=== PATIENT | male | born 1940 | race Caucasian/White ===

== ENCOUNTER 2017-08-06 08:10 | Day surgery (SDC) | payer OTHER, BC ==
[2017-08-05 16:19] VITALS: BMI 24.9
[2017-08-06] MEDS ORDERED: PROPOFOL 20 ML ONE ×5 (08:42)
[2017-08-06] MEDS ORDERED: LABETALOL HCL 5 MG/1 ML (100MG/20 ML VIAL) ONE (08:56)
[2017-08-06] MEDS ORDERED: ESMOLOL HCL 10 ML ONE (08:56)
[2017-08-06] MEDS ORDERED: METOPROLOL TARTRATE 5 MG/5 ML VIAL ONE (08:56)
[2017-08-06 09:25] VITALS: TEMP 97.5
[2017-08-06 10:35] VITALS: BP 117/72; PULSE 108
== END 2017-08-06 10:46 | disposition home or self-care (01) ==
LOC: JASU-ENDO 08:10
PROVIDERS: ATTEND Internal Medicine Gastroenterology
PROC: 0DJD8ZZ Inspection of Lower Intestinal Tract, Via Natural or Artificial Opening Endoscopic (ICD-10-PCS; principal; 2017-08-06 08:45)
DX: K57.30 Diverticulosis of large intestine without perforation or abscess without bleeding (principal); R19.4 Change in bowel habit; R63.4 Abnormal weight loss

== ENCOUNTER 2019-07-15 06:23 | Day surgery (SDC) | payer OTHER ==
--- NOTE | 2019-07-09 09:49 | HP ---
DATE OF ADMISSION: 07/15/2019 DATE OF DICTATION: 06/02/2019 REASON FOR ADMISSION: Left inguinal hernia, inguinal scrotal hernia. BRIEF HISTORY: This is a 79-year-old gentleman with a very longstanding history of having a large left inguinal scrotal hernia. Recently he started having discomfort in the left groin and left lower abdomen secondary to the hernia and therefore he has been referred for further evaluation and repair. He has had no nausea, no vomiting, no change in bowel habits. PAST MEDICAL HISTORY: Significant for chronic atrial fibrillation, hypertension , and chronic peritoneal pelvic pain. He has a history of having thyroid issues as well. PAST SURGICAL HISTORY: Patient had an open appendectomy many, many years ago. ALLERGIES: None. MEDICATION: Coumadin, atorvastatin, escitalopram, digoxin, diltiazem, baby aspirin, olmesartan, incruse inhaler, dulera inhaler, ranolazine and Zantac. SOCIAL HISTORY: Does not smoke. He drinks socially. No history of drug use. PHYSICAL EXAMINATION: Abdomen: Patient's abdomen is soft, nontender, nondistended. He has a poorly healed right lower quadrant scar. He has no obvious findings in the right groin. A small hernia cannot be entirely ruled out due to its laxity in this gentleman's age. The right scrotum and testicles are within normal limits. On the left side, he has a large, left inguinal scrotal hernia. The hernia is only partially reducible in the supine position. Left scrotum and testicles within normal limits. IMPRESSION/PLAN: Chronically incarcerated left inguinal scrotal hernia: This is a 79-year-old gentleman symptomatic from an enlarging chronic left inguinal scrotal hernia. It is only partially reducible on examination and therefore it is chronically incarcerated as well. Typically this patient can be repaired in a laparoscopic fashion or robotic fashion. However, given the fact that he is on coumarin for his chronic atrial fibrillation, I think the risks and chronic hematoma problems outweigh the benefits from the laparoscopic procedure, and therefore the patient will be scheduled for an open left inguinal hernia repair. Accordingly , the patient most likely will require a Lovenox bridge for his chronic atrial fibrillation as well, but this will be determined by his primary care physician, Dr. Purcell. Prior to any surgical intervention, patient will require medical clearance and possibly cardiac clearance as per Dr. Purcell. The indications, alternatives, and complications to procedure discussed. Questions have been answered. Will plan to obtain written consent the day of surgery. Chris RAMOS [id number] cc: Sandra Purcell M.D. MTDD
[2019-07-13 09:46] VITALS: BMI 27.6
[2019-07-15] MEDS ORDERED: TAMSULOSIN HCL 0.4 MG CAP ONE (07:19)
[2019-07-15] MEDS ORDERED: CLINDAMYCIN PHOSPHATE 600 MG/4 ML VIAL ONE (07:19)
[2019-07-15] MEDS ORDERED: DEXAMETHASONE SOD PHOSPHATE 4 MG/1 ML VIAL ONE (08:21)
[2019-07-15] MEDS ORDERED: BUPIVACAINE HCL/PF 0.5% (5 MG/ML) 30 ML VIAL IJ ONE (08:21)
[2019-07-15] MEDS ORDERED: MIDAZOLAM HCL 2 MG/2 ML SINGLE DOSE VIAL ONE ×2 (08:22)
[2019-07-15] MEDS ORDERED: PROPOFOL 20 ML ONE (08:31)
[2019-07-15] MEDS ORDERED: ROCURONIUM BROMIDE 50 MG/5 ML SYRINGE ONE (08:32)
[2019-07-15] MEDS ORDERED: LIDOCAINE HCL/PF 2% SDV 5ML VIAL ONE (09:03)
[2019-07-15] MEDS ORDERED: CLINDAMYCIN PHOSPHATE 600 MG/4 ML VIAL IVPB ONE (09:10)
[2019-07-15] MEDS ORDERED: NEOSTIGMINE METHYLSULFATE 0.5 MG/1 ML - 10 ML MDV ONE (09:50)
[2019-07-15] MEDS ORDERED: GLYCOPYRROLATE 0.2 MG/1 ML VIAL ONE (09:50)
[2019-07-15] MEDS ORDERED: DESFLURANE GAS 240 ML BOTTLE IH ONE (10:05)
[2019-07-15] MEDS ORDERED: ONDANSETRON 4 MG/2 ML VIAL IVPUSH PRN (10:07)
[2019-07-15] MEDS ORDERED: oxyCODONE HCL 5 MG TABLET PO PRN ×2 (10:07→10:41)
--- NOTE | 2019-07-15 10:34 | OP ---
Operative Note - Note: Operative Date: 07/15/19 Pre-Operative Diagnosis: left inguinal hernia Operation: Left inguinal hernia repair with mesh Post-Operative Diagnosis: Same as Pre-op Surgeon: Bryson Griffin Lumber Carrier: Izzy Velazquez Anesthesiologist/GAS DERRICK OPERATOR: Louie Sears Anesthesia: General Specimens Removed: hernia sac Estimated Blood Loss (mls): 20 Fluid Volume Replaced (mls): 800 Operative Report Dictated: Yes
[2019-07-15] MEDS ORDERED: ACETAMINOPHEN 325 MG TABLET (FP) PO PRN ×2 (10:35→21:01)
--- NOTE | 2019-07-15 10:35 | SURG ---
Surgery Enamel Shader Note Enamel Shader: Izzy Velazquez PA-C Date of Service: 07/15/19 Diagnosis: left inguinal hernia Procedure: Left inguinal hernia repair with mesh I was present for the entirety of the operative procedure. For further detail, please refer to operative report. Visit type - Case Type Case Type: Scheduled - Emergency Emergency Visit: No - New patient This patient is new to me today: Yes Date on this admission: 07/15/19
--- NOTE | 2019-07-15 12:47 | OP ---
DATE OF OPERATION: 07/15/2019 PREOPERATIVE DIAGNOSIS: Chronically incarcerated left inguinal hernia. POSTOPERATIVE DIAGNOSIS: Chronically incarcerated left pantaloon inguinal hernia. PROCEDURE: Open repair of left incarcerated inguinal hernia with mesh, 8 cm intermediate wound closure. SURGEON: Bryson Griffin MD HORSESHOER: Izzy Velazquez PA-C ANESTHESIA: Tasia Campbell MD (general) ESTIMATED BLOOD LOSS: Minimal. SPECIMEN: Hernia sac and cord lipoma INDICATION FOR PROCEDURE: This is a 79-year-old gentleman with a very large inguinoscrotal hernia. The patient is chronically anticoagulated due to atrial fibrillation, therefore, he is here for an open repair of this bothersome hernia. Patient identified and appropriately positioned on the operating room table. After placement of general anesthesia, the abdomen prepped and draped in usual sterile fashion with ChloraPrep. An 8-cm left inguinal incision was made and deepened to subcutaneous tissue. Anastasiya's divided sharply, the fascia of the external oblique identified, divided sharply through the external ring. Ilioinguinal nerve identified, retracted laterally. The cord structures were isolated at the pubic tubercle. The cremasterics were divided sharply. A large indirect inguinal hernia sac was identified with a moderate size cord lipoma. The lipoma was taken back to the level of the internal ring, clamped and then tied and sent as cord lipoma. The sac was off the cord structures back to the level of the internal ring. It was suture ligated and dunked into the preperitoneal floor. The preperitoneal floor was attenuated and clearly had a defect through the direct inguinal space. Given this finding, the inguinal floor was then opened. A Marlex mesh plug was placed into the preperitoneal space beyond the inguinal floor and then anchored with interrupted 0 Prolene sutures, the inguinal floor reconstructed in 2 layers with a running 2 -0 Prolene suture, and due to the attenuation of the floor, a 15 x 15 piece of ProGrip was cut to the appropriate size of the floor, keyholed, and placed on the inguinal floor as reinforcement, and wrapped around the cord structures to reconstruct the internal ring. The cord structures were returned to the anatomic position along with the inguinal nerve. The fascia of the external oblique was reapproximated with a running 3-0 Vicryl suture. Anastasiya's reapproximated with interrupted inverted 3-0 Vicryl suture and the skin was closed with 4-0 Biosyn followed by Dermabond. At the conclusion of this case, sponge count was correct. ATTESTATION: Brief operative note handwritten on the preprinted form. [facility] queried prior to giving narcotics. Chris RAMOS [id number] cc: Sandra Purcell MD MTD
--- NOTE | 2019-07-15 13:03 | PN ---
Progress Note, Physician Chief Complaint: L inguinal hernia repair History of Present Illness: Previous notes and events reviewed awake and alert NAD POD #0 L inguinal hernia repair with mesh denies chest pain, SOB - Current Medication List Current Medications: Active Medications Acetaminophen (Tylenol -) 650 mg PO Q4H PRN PRN Reason: PAIN OR FEVER Aspirin (Asa -) 81 mg PO DAILY [facility] Atorvastatin Calcium (Lipitor -) 40 mg PO HS [facility] Diltiazem HCl (Cardizem Cd -) 180 mg PO DAILY [facility] Enoxaparin Sodium (Lovenox -) 100 mg SQ BID [facility] Fentanyl (Sublimaze Injection -) 25 mcg IVPUSH [id number] PRN PRN Reason: PAIN-PACU ORDER X 4 DOSES ONLY Lactated Ringer's (Lactated Ringers Solution) 1,000 mls @ 75 mls/hr IV ASDIR [facility] Non-Formulary Medication (Ranitidine Hcl [Ranitidine Hcl]) 300 mg PO HS [facility] Ondansetron HCl (Zofran Injection) 4 mg IVPUSH Q6H PRN PRN Reason: NAUSEA AND/OR VOMITING Oxycodone HCl (Roxicodone -) 5 mg PO Q4H PRN PRN Reason: PAIN LEVEL 1-5 Oxycodone HCl (Roxicodone -) 5 mg PO Q4H PRN PRN Reason: PAIN LEVEL 1-5 Ranolazine (Ranexa -) 500 mg PO BID [facility] Umeclidinium/Vilanterol (Anoro Ellipta 62.5-25 Mcg Inh) puff IH DAILY [facility] Warfarin Sodium (Coumadin -) 2 mg PO DAILY [facility] - Objective Vital Signs: Vital Signs Temperature 98.1 F 07/15/19 10:24 Pulse Rate 84 07/15/19 10:30 Respiratory Rate 15 07/15/19 10:30 Blood Pressure 105/70 07/15/19 10:30 O2 Sat by Pulse Oximetry (%) 94 L 07/15/19 10:30 Constitutional: Yes: No Distress, Calm Eyes: Yes: Conjunctiva Clear HENT: Yes: Atraumatic Cardiovascular: Yes: Regular Rate and Rhythm Respiratory: Yes: Regular, CTA Bilaterally Gastrointestinal: Yes: Normal Bowel Sounds, Soft Genitourinary: Yes: Incontinence Musculoskeletal: Yes: Muscle Weakness Extremities: Yes: WNL Edema: No Wound/Incision: Yes: Dressing Dry and Intact Neurological: Yes: Alert, Oriented Psychiatric: Yes: Alert, Oriented Problem List - Problems (1) Inguinal hernia Assessment/Plan: -POD #0 L inguinal hernia repair -pain control -incentive spirometer -surgery on board Code(s): K40.90 - UNIL INGUINAL HERNIA, W/O OBST OR GANGR, NOT SPCF RECUR (2) HTN (hypertension) Assessment/Plan: -low Na diet -Cardizem Code(s): I10 - ESSENTIAL (PRIMARY) HYPERTENSION (3) Afib Assessment/Plan: -on Lovenox BID -started back on Coumadin 2mg in hope to bridge INR, will stop Lovenox when INR 2-3 -monitor INR daily -therapeutic range 2-3 Code(s): I48.91 - UNSPECIFIED ATRIAL FIBRILLATION Assessment/Plan see problem list dvt ppx
[2019-07-15] MEDS: LACTATED RINGERS SOLUTION 1,000 ML IV SCH (13:30)
[2019-07-15 18:51] LABS: INR 1.18 (0.83-1.09); PROTHROMBIN TIME (PATIENT) 13.9 SEC (9.7-13.0)
[2019-07-15 18:54] LABS: ACTIVATED PTT 30.5 SECONDS (25.2-36.5)
[2019-07-15] MEDS: ENOXAPARIN NA (PORCINE) 80 MG/0.8 ML DISP.SYRIN SQ SCH (21:30)
[2019-07-15] MEDS: RANOLAZINE E.R. 500 MG TABLET (FP) PO SCH (21:32)
[2019-07-15] MEDS ORDERED: ATORVASTATIN CA 40 MG TABLET (FP) PO SCH (22:00)
[2019-07-15] MEDS ORDERED: RANITIDINE HCL 150 MG TABLET (FP) PO SCH (22:00)
[2019-07-16] MEDS: LACTATED RINGERS SOLUTION 1,000 ML IV SCH (01:35)
--- NOTE | 2019-07-16 08:40 | PN ---
Progress Note (short form) - Note Progress Note: 79 yo M s/p Lt inguinal hernia repair, pt seen and examined at bedside. Pt states that he is feeling well, just complaining of some mild Lt groin pain, but states that he has not taken any pain meds. Pt is ambulating and urinating well. Pt tolerating PO. Pt denies fever, chills, n/v, cp, sob. Last Vital Signs Temp Pulse Resp BP Pulse Ox 97.9 F 110 H 20 115/58 L 96 07/16/19 02:35 07/16/19 02:35 07/16/19 02:35 07/16/19 02:35 07/15/19 21:00 PE: Gen: A&O x3 Resp: breathing comfortably Abd: soft, nondistended, mild Lt groin tenderness, dressing clean with no erythema or discharge. Ext: no edema Problem List - Problems (1) Inguinal hernia Assessment/Plan: Plan -spoke with Mayte Storey, pt will continue his lovenox and coumadin and follow up with Dr. Perea tomorrow in the office. -pt is cleared for discharge and will follow up with Dr. Griffin in 1 week. Code(s): K40.90 - UNIL INGUINAL HERNIA, W/O OBST OR GANGR, NOT SPCF RECUR
[2019-07-16 09:12] LABS: HEMOGLOBIN 12.6 GM/dL (11.7-16.9); MCH 34.5 pg (25.7-33.7); MCHC 35.1 g/dl (32.0-35.9); MEAN CELL VOLUME 98.2 fl (80-96); MEAN PLT VOLUME 7.8 fl (7.5-11.1); PLATELET COUNT 178 K/MM3 (134-434); RBC 3.66 M/mm3 (4.00-5.60); WHITE BLOOD COUNT 10.3 K/mm3 (4.0-10.0)
[2019-07-16] MEDS: RANOLAZINE E.R. 500 MG TABLET (FP) PO SCH (09:22)
[2019-07-16] MEDS: ENOXAPARIN NA (PORCINE) 80 MG/0.8 ML DISP.SYRIN SQ SCH (09:23)
[2019-07-16 09:38] VITALS: BP 117/66; PULSE 105; TEMP 97.8
[2019-07-16 10:00] LABS: INR 1.18 (0.83-1.09); PROTHROMBIN TIME (PATIENT) 13.9 SEC (9.7-13.0)
[2019-07-16] MEDS ORDERED: UMECLIDINIUM/VILANTEROL (ANORO) 62.5/25 MCG INHALER IH SCH (10:00)
[2019-07-16] MEDS ORDERED: ASPIRIN 81 MG CHEWABLE TABLETS PO SCH (10:00)
[2019-07-16] MEDS ORDERED: ENOXAPARIN NA (PORCINE) 100 MG/1 ML DISP.SYRIN SQ SCH (10:00)
[2019-07-16] MEDS ORDERED: WARFARIN NA 2 MG TABLET (UD) PO SCH (18:00)
--- NOTE | 2019-07-16 18:13 | PATH ---
Surgical Pathology Report Patient Name: ROBYN PALOMARES [facility]. Rec. #: [id number] /Age/Gender: 1940 (Age: 79) / M Account: [id number] Location: AMBULATORY SURG Taken: 07/15/2019 Received: 07/15/2019 Reported: 07/16/2019 Physicians: Bryson Griffin Specimen(s) Received A: CORD LIPOMA B: LEFT INGUINAL HERNIA Clinical History Inguinal hernia Final Diagnosis A. CORD LIPOMA, EXCISION: MATURE FIBROADIPOSE TISSUE CONSISTENT WITH CORD LIPOMA. B. HERNIA SAC, LEFT, INGUINAL HERNIA REPAIR: HERNIA SAC. Electronically Signed Linda Damon M.D. Gross Description A. Received in formalin labeled "cord lipoma" is an irregular fragment of fibroadipose tissue measuring 7 x 3 x 1.5 cm. Professor Of [employer] sections are submitted in one cassette. B. Received in formalin labeled "hernia sac" fibromembranous and adipose tissue consistent with hernia sac measuring 7 x 3 x 2 cm. Professor Of [employer] sections are submitted in one cassette. MLSZ/07/15/2019 sanritu/07/15/2019
== END 2019-07-16 11:33 | disposition home or self-care (01) ==
LOC: JASU-SURG 06:23 → JASUSAT 06:23 → J6S 14:03 → JASUSAT 07-16 11:33
PROVIDERS: ATTEND Surgery
PROC: 0YU60JZ Supplement Left Inguinal Region with Synthetic Substitute, Open Approach (ICD-10-PCS; principal; 2019-07-15 09:00)
DX: K40.31 Unilateral inguinal hernia, with obstruction, without gangrene, recurrent (principal); I48.91 Unspecified atrial fibrillation; Z79.01 Long term (current) use of anticoagulants; J44.9 Chronic obstructive pulmonary disease, unspecified
CPT/HCPCS: 36415; 85027; 85610; 85730; 94760; 97116-GP; 97161-GP

== ENCOUNTER 2021-02-17 09:49 | Inpatient (IN) | payer OTHER ==
[2021-02-17] MEDS ORDERED: LACTATED RINGERS SOLUTION 1000 ML INFUS.BAG IV ONE (11:14)
[2021-02-17 11:27] LABS: BASO % 0.4 % (0-2.0); HEMATOCRIT 33.2 % (35.4-49); HEMOGLOBIN 11.7 GM/dL (11.7-16.9); LYMPH % 9.1 % (8-40); MCH 34.2 pg (25.7-33.7); MCHC 35.3 g/dl (32.0-35.9); MEAN CELL VOLUME 96.9 fl (80-96); MONO % 7.1 % (3.8-10.2); NEUT % 80.4 % (42.8-82.8); PLATELET COUNT 171 K/MM3 (134-434); RBC 3.43 M/mm3 (4.00-5.60); RDW 13.1 % (11.9-15.9); WHITE BLOOD COUNT 8.1 K/mm3 (4.0-10.0)
[2021-02-17 11:34] LABS: INR 2.74 (0.83-1.09); PROTHROMBIN TIME (PATIENT) 32.7 SEC (9.7-13.0)
[2021-02-17 11:37] LABS: ACTIVATED PTT 32.9 SECONDS (25.2-36.5)
[2021-02-17 11:54] LABS: CHLORIDE 107 mmol/L (98-107); SODIUM 138 mmol/L (136-145)
[2021-02-17 11:57] LABS: ALBUMIN 2.6 g/dl (3.4-5.0); ANION GAP 6 MMOL/L (8-16); CO2 24 mmol/L (21-32); GLUCOSE,RANDOM 96 mg/dL (74-106)
[2021-02-17 12:00] LABS: CREATININE 0.8 mg/dL (0.55-1.3); SGOT/AST 16 U/L (15-37); SGPT/ALT 17 U/L (13-61)
[2021-02-17 12:02] LABS: BILIRUBIN,TOTAL 0.7 mg/dL (0.2-1); TOT PROT 6.6 g/dl (6.4-8.2)
[2021-02-17 12:03] LABS: ALK PHOS 77 U/L (45-117)
[2021-02-17 12:31] LABS: LIPASE 70 U/L (73-393)
[2021-02-17 12:39] LABS: N-TERMINAL BNP 1284.7 pg/ml (5-450)
[2021-02-17 14:05] LABS: URINE APPEARANCE CLEAR; URINE BILIRUBIN NEGATIVE (NEGATIVE); URINE COLOR YELLOW; URINE GLUCOSE (UA) NEGATIVE (NEGATIVE); URINE KETONE NEGATIVE (NEGATIVE); URINE LEUK ESTERASE NEGATIVE (NEGATIVE); URINE NITRITE NEGATIVE (NEGATIVE); URINE PROTEIN NEGATIVE (NEGATIVE)
[2021-02-17] MEDS ORDERED: ACETAMINOPHEN 1000 MG/100 ML VIAL (NON FORMULARY) IVPB PRN (16:12)
[2021-02-17] MEDS ORDERED: SODIUM CHLORIDE 1,000 ML IV SCH (16:15)
[2021-02-17] MEDS ORDERED: dilTIAZem HCL 60 MG TABLET ONE (16:48)
[2021-02-17] MEDS ORDERED: PANTOPRAZOLE 40 MG TABLET ONE (16:48)
[2021-02-17] MEDS: PANTOPRAZOLE 40 MG TABLET PO SCH (17:06)
[2021-02-17] MEDS ORDERED: HEPARIN NA (PORCINE) 5,000 UNITS/ML 1ML VIAL ONE (21:51)
[2021-02-17] MEDS ORDERED: ATORVASTATIN CA 20 MG TABLET (FP) ONE (21:51)
[2021-02-17] MEDS: ATORVASTATIN CA 20 MG TABLET (FP) PO SCH (22:12)
[2021-02-17] MEDS: HEPARIN NA (PORCINE) 5,000 UNITS/ML 1ML VIAL SQ SCH (22:12)
[2021-02-18 01:06] VITALS: BMI 24.0
[2021-02-18 06:54] LABS: HEMATOCRIT 31.7 % (35.4-49); HEMOGLOBIN 11.2 GM/dL (11.7-16.9); MCH 34.1 pg (25.7-33.7); MCHC 35.4 g/dl (32.0-35.9); MEAN CELL VOLUME 96.4 fl (80-96); MEAN PLT VOLUME 8.9 fl (7.5-11.1); PLATELET COUNT 194 K/MM3 (134-434); RBC 3.29 M/mm3 (4.00-5.60); RDW 12.9 % (11.9-15.9); WHITE BLOOD COUNT 8.3 K/mm3 (4.0-10.0)
[2021-02-18 07:21] LABS: CALCIUM 8.2 mg/dL (8.5-10.1)
[2021-02-18 07:22] LABS: ALBUMIN 2.4 g/dl (3.4-5.0); BLOOD UREA NITROGEN 12.6 mg/dL (7-18)
[2021-02-18 07:25] LABS: CREATININE 0.8 mg/dL (0.55-1.3)
[2021-02-18 07:27] LABS: BILIRUBIN,TOTAL 0.6 mg/dL (0.2-1); TOT PROT 6.3 g/dl (6.4-8.2)
[2021-02-18] MEDS: PANTOPRAZOLE 40 MG TABLET PO SCH (09:03)
[2021-02-18] MEDS: ESCITALOPRAM OXALATE 10 MG TABLET PO SCH (09:04)
[2021-02-18] MEDS: DONEPEZIL HCL 5 MG TABLET (FP) PO SCH (09:04)
[2021-02-18] MEDS: HEPARIN NA (PORCINE) 5,000 UNITS/ML 1ML VIAL SQ SCH ×2 (09:04→21:31)
[2021-02-18] MEDS: ASPIRIN COATED 81 MG TABLET.EC PO SCH (09:05)
[2021-02-18] MEDS: ATORVASTATIN CA 20 MG TABLET (FP) PO SCH (21:31)
[2021-02-19] MEDS: ASPIRIN COATED 81 MG TABLET.EC PO SCH (09:01)
[2021-02-19] MEDS: ESCITALOPRAM OXALATE 10 MG TABLET PO SCH (09:02)
[2021-02-19] MEDS: DONEPEZIL HCL 5 MG TABLET (FP) PO SCH (09:02)
[2021-02-19] MEDS: PANTOPRAZOLE 40 MG TABLET PO SCH (09:02)
[2021-02-19] MEDS: HEPARIN NA (PORCINE) 5,000 UNITS/ML 1ML VIAL SQ SCH (09:02)
[2021-02-19] MEDS: WARFARIN NA 2 MG TABLET PO SCH (17:00)
[2021-02-19] MEDS: ATORVASTATIN CA 20 MG TABLET (FP) PO SCH (21:41)
[2021-02-20 07:08] LABS: HEMATOCRIT 34.9 % (35.4-49); HEMOGLOBIN 12.4 GM/dL (11.7-16.9); MCHC 35.4 g/dl (32.0-35.9); MEAN PLT VOLUME 8.4 fl (7.5-11.1); PLATELET COUNT 250 K/MM3 (134-434); RBC 3.64 M/mm3 (4.00-5.60); RDW 12.9 % (11.9-15.9); WHITE BLOOD COUNT 6.7 K/mm3 (4.0-10.0)
[2021-02-20 07:22] LABS: INR 1.85 (0.83-1.09); PROTHROMBIN TIME (PATIENT) 22.4 SEC (9.7-13.0)
[2021-02-20 07:36] LABS: CALCIUM 8.2 mg/dL (8.5-10.1)
[2021-02-20 07:37] LABS: ALBUMIN 2.7 g/dl (3.4-5.0)
[2021-02-20 07:39] LABS: CREATININE 0.8 mg/dL (0.55-1.3)
[2021-02-20 07:40] LABS: BILIRUBIN,TOTAL 0.6 mg/dL (0.2-1); TOT PROT 6.7 g/dl (6.4-8.2)
[2021-02-20] MEDS: ASPIRIN COATED 81 MG TABLET.EC PO SCH (09:48)
[2021-02-20] MEDS: DONEPEZIL HCL 5 MG TABLET (FP) PO SCH (09:49)
[2021-02-20] MEDS: PANTOPRAZOLE 40 MG TABLET PO SCH (09:49)
[2021-02-20] MEDS: ESCITALOPRAM OXALATE 10 MG TABLET PO SCH (09:49)
[2021-02-20 10:22] LABS: ERYTHROCYTE SEDIMENTATION RATE 90 mm/hr (0-20)
[2021-02-20] MEDS: WARFARIN NA 2 MG TABLET PO SCH (17:04)
[2021-02-20] MEDS ORDERED: ALBUTEROL SO4 HFA INHALER IH PRN (17:47)
[2021-02-20] MEDS: ATORVASTATIN CA 20 MG TABLET (FP) PO SCH (21:05)
[2021-02-21 06:10] VITALS: TEMP 97.6
[2021-02-21 07:12] LABS: INR 1.81 (0.83-1.09); PROTHROMBIN TIME (PATIENT) 21.5 SEC (9.7-13.0)
[2021-02-21 08:59] VITALS: BP 115/66
[2021-02-21] MEDS: PANTOPRAZOLE 40 MG TABLET PO SCH (09:54)
[2021-02-21] MEDS: DONEPEZIL HCL 5 MG TABLET (FP) PO SCH (09:54)
[2021-02-21] MEDS: ESCITALOPRAM OXALATE 10 MG TABLET PO SCH (09:54)
[2021-02-21] MEDS ORDERED: WARFARIN NA 2 MG TABLET PO SCH (11:26)
[2021-02-21] MEDS ORDERED: DIGOXIN 0.125 MG TABLET (FP) PO SCH (11:30)
[2021-02-21 11:41] VITALS: PULSE 117
== END 2021-02-21 13:43 | disposition home or self-care (01) | DRG 392 ==
LOC: JER 09:49 → JERBED 14:47 → J4S 02-18 00:35
PROVIDERS: ADMIT Family Medicine; ATTEND Family Medicine
DX: K52.9 Noninfective gastroenteritis and colitis, unspecified (principal); I48.19 Other persistent atrial fibrillation; J84.9 Interstitial pulmonary disease, unspecified; I51.7 Cardiomegaly; I10 Essential (primary) hypertension; R59.0 Localized enlarged lymph nodes; K57.90 Diverticulosis of intestine, part unspecified, without perforation or abscess without bleeding; K21.9 Gastro-esophageal reflux disease without esophagitis; D72.829 Elevated white blood cell count, unspecified; R41.82 Altered mental status, unspecified; E78.5 Hyperlipidemia, unspecified; F03.90 Unspecified dementia, unspecified severity, without behavioral disturbance, psychotic disturbance, mood disturbance, and anxiety
CPT/HCPCS: 36415; 70450-TC; 71045-TC-FY; 71260-TC; 74177-TC; 80053; 81003; 82550; 83690; 83880; 84443; 84484; 85025; 85027; 85610; 85651; 85730; 86140; 87045; 87046; 87086; 93005; 93010; 97116-GP; 97161-GP; 99285-25; C9803; J1644; Q9967; U0003; U0005

== ENCOUNTER 2022-03-12 16:37 | Observation (INO) | payer OTHER ==
[2022-03-12 17:09] VITALS: BMI 24.3
[2022-03-12 20:33] LABS: BASO % 0.5 % (0-2.0); EOS % 2.5 % (0-4.5); HEMATOCRIT 37.8 % (35.4-49); HEMOGLOBIN 12.8 GM/dL (11.7-16.9); LYMPH % 19.8 % (8-40); MCH 32.7 pg (25.7-33.7); MCHC 33.9 g/dl (32.0-35.9); MEAN CELL VOLUME 96.5 fl (80-96); MEAN PLT VOLUME 8.4 fl (7.5-11.1); MONO % 6.8 % (3.8-10.2); NEUT % 70.4 % (42.8-82.8); PLATELET COUNT 199 10^3/uL (134-434); RBC 3.91 M/mm3 (4.00-5.60); RDW 13.1 % (11.9-15.9); VENOUS BASE EXCESS -1.1 mmol/L (-2-2); VENOUS O2 SATURATION 21.5 % (70-80); VENOUS PCO2 44.6 mmHg (38-52); VENOUS PH 7.359 (7.310-7.410); WHITE BLOOD COUNT 5.9 K/mm3 (4.0-10.0)
[2022-03-12 20:41] LABS: INR 2.97 (0.83-1.09); PROTHROMBIN TIME (PATIENT) 34.5 SEC (9.7-13.0)
[2022-03-12 20:44] LABS: ACTIVATED PTT 38.2 SECONDS (25.2-36.5)
[2022-03-12 21:18] LABS: CHLORIDE 108 mmol/L (98-107); SODIUM 141 mmol/L (136-145)
[2022-03-12 21:20] LABS: CALCIUM 8.5 mg/dL (8.5-10.1)
[2022-03-12 21:21] LABS: ALBUMIN 3.4 g/dl (3.4-5.0); ANION GAP 6 MMOL/L (8-16); CO2 27 mmol/L (21-32); GLUCOSE,RANDOM 97 mg/dL (74-106); MAGNESIUM 2.1 mg/dL (1.8-2.4)
[2022-03-12 21:24] LABS: CREATININE 1.2 mg/dL (0.55-1.3); SGOT/AST 14 U/L (15-37); SGPT/ALT 18 U/L (13-61)
[2022-03-12 21:25] LABS: BILIRUBIN,TOTAL 0.4 mg/dL (0.2-1)
[2022-03-12 21:27] LABS: ALK PHOS 109 U/L (45-117); BLOOD UREA NITROGEN 19.9 mg/dL (7-18)
[2022-03-12 23:14] LABS: PH,URINE 5.5 (5.0-8.0); URINE APPEARANCE CLEAR; URINE BILIRUBIN NEGATIVE (NEGATIVE); URINE COLOR DK YELLOW; URINE GLUCOSE (UA) NEGATIVE (NEGATIVE); URINE KETONE TRACE (NEGATIVE); URINE LEUK ESTERASE NEGATIVE (NEGATIVE); URINE NITRITE NEGATIVE (NEGATIVE); URINE PROTEIN NEGATIVE (NEGATIVE)
[2022-03-13] MEDS: PANTOPRAZOLE 40 MG TABLET PO SCH (10:55)
[2022-03-13] MEDS: ESCITALOPRAM OXALATE 10 MG TABLET PO SCH (10:55)
[2022-03-13] MEDS: DONEPEZIL HCL 5 MG TABLET (FP) PO SCH (10:55)
[2022-03-13] MEDS: ASPIRIN COATED 81 MG TABLET.EC PO SCH (10:55)
[2022-03-13] MEDS: MEMANTINE HCL 10 MG TABLET (FP) PO SCH ×2 (10:55→21:17)
[2022-03-13] MEDS: buPROPion HCL 75 MG TABLET PO SCH (11:10)
[2022-03-13 11:57] LABS: BASO % 0.6 % (0-2.0); EOS % 2.6 % (0-4.5); HEMATOCRIT 38.3 % (35.4-49); HEMOGLOBIN 13.1 GM/dL (11.7-16.9); LYMPH % 16.6 % (8-40); MCHC 34.1 g/dl (32.0-35.9); MEAN CELL VOLUME 96.6 fl (80-96); MEAN PLT VOLUME 8.3 fl (7.5-11.1); MONO % 5.9 % (3.8-10.2); NEUT % 74.3 % (42.8-82.8); PLATELET COUNT 192 10^3/uL (134-434); RBC 3.96 M/mm3 (4.00-5.60); RDW 12.8 % (11.9-15.9); WHITE BLOOD COUNT 6.2 K/mm3 (4.0-10.0)
[2022-03-13 12:15] LABS: BLOOD UREA NITROGEN 18.8 mg/dL (7-18); CALCIUM 8.8 mg/dL (8.5-10.1)
[2022-03-13] MEDS: CARBIDOPA/LEVODOPA 10/100 TABLET (FP) PO SCH ×2 (14:26→21:16)
[2022-03-13] MEDS ORDERED: WARFARIN NA 2 MG TABLET PO SCH (18:00)
[2022-03-13 19:12] LABS: INR 2.57 (0.83-1.09); PROTHROMBIN TIME (PATIENT) 29.8 SEC (9.7-13.0)
[2022-03-13] MEDS: ATORVASTATIN CA 40 MG TABLET (FP) PO SCH (21:17)
[2022-03-14] MEDS: CARBIDOPA/LEVODOPA 10/100 TABLET (FP) PO SCH ×3 (06:16→21:41)
[2022-03-14] MEDS: ASPIRIN COATED 81 MG TABLET.EC PO SCH (09:24)
[2022-03-14] MEDS: PANTOPRAZOLE 40 MG TABLET PO SCH (09:24)
[2022-03-14] MEDS: APIXABAN 5 MG TABLET PO SCH ×2 (09:24→21:41)
[2022-03-14] MEDS: buPROPion HCL 75 MG TABLET PO SCH (09:24)
[2022-03-14] MEDS: ESCITALOPRAM OXALATE 10 MG TABLET PO SCH (09:24)
[2022-03-14] MEDS: MEMANTINE HCL 10 MG TABLET (FP) PO SCH ×2 (09:24→21:41)
[2022-03-14] MEDS: DONEPEZIL HCL 5 MG TABLET (FP) PO SCH (09:24)
[2022-03-14 11:43] LABS: BASO % 0.4 % (0-2.0); EOS % 3.1 % (0-4.5); HEMATOCRIT 40.1 % (35.4-49); HEMOGLOBIN 13.5 GM/dL (11.7-16.9); LYMPH % 14.7 % (8-40); MCH 32.9 pg (25.7-33.7); MCHC 33.8 g/dl (32.0-35.9); MEAN CELL VOLUME 97.4 fl (80-96); MEAN PLT VOLUME 8.1 fl (7.5-11.1); MONO % 7.6 % (3.8-10.2); NEUT % 74.2 % (42.8-82.8); PLATELET COUNT 218 10^3/uL (134-434); RBC 4.12 M/mm3 (4.00-5.60); RDW 13.3 % (11.9-15.9)
[2022-03-14 11:49] LABS: INR 3.38 (0.83-1.09); PROTHROMBIN TIME (PATIENT) 39.4 SEC (9.7-13.0)
[2022-03-14 12:11] LABS: ALBUMIN 3.3 g/dl (3.4-5.0); CALCIUM 8.9 mg/dL (8.5-10.1)
[2022-03-14 12:12] LABS: BLOOD UREA NITROGEN 17.9 mg/dL (7-18)
[2022-03-14 12:15] LABS: BILIRUBIN,TOTAL 0.6 mg/dL (0.2-1); CREATININE 1.1 mg/dL (0.55-1.3); TOT PROT 7.1 g/dl (6.4-8.2)
[2022-03-14] MEDS ORDERED: WARFARIN NA 2 MG TABLET PO SCH (18:00)
[2022-03-14] MEDS: ATORVASTATIN CA 40 MG TABLET (FP) PO SCH (21:41)
[2022-03-15] MEDS: CARBIDOPA/LEVODOPA 10/100 TABLET (FP) PO SCH ×3 (05:39→14:16)
[2022-03-15] MEDS: ESCITALOPRAM OXALATE 10 MG TABLET PO SCH (09:10)
[2022-03-15] MEDS: APIXABAN 5 MG TABLET PO SCH (09:10)
[2022-03-15] MEDS: DONEPEZIL HCL 5 MG TABLET (FP) PO SCH (09:10)
[2022-03-15] MEDS: MEMANTINE HCL 10 MG TABLET (FP) PO SCH (09:10)
[2022-03-15] MEDS: ASPIRIN COATED 81 MG TABLET.EC PO SCH (09:10)
[2022-03-15] MEDS: PANTOPRAZOLE 40 MG TABLET PO SCH (09:10)
[2022-03-15] MEDS: buPROPion HCL 75 MG TABLET PO SCH (09:11)
[2022-03-15 15:43] VITALS: BP 110/62; PULSE 116; TEMP 97.8
== END 2022-03-15 18:05 | disposition home health service (06) ==
LOC: JER 16:37 → JERBED 03-13 00:57 → J8W 03-13 06:52
PROVIDERS: ADMIT Internal Medicine; ATTEND Family Medicine
DX: G93.41 Metabolic encephalopathy (principal); I48.91 Unspecified atrial fibrillation; G20 Parkinson's disease; F02.80 Dementia in other diseases classified elsewhere, unspecified severity, without behavioral disturbance, psychotic disturbance, mood disturbance, and anxiety; I10 Essential (primary) hypertension; E03.9 Hypothyroidism, unspecified; E78.5 Hyperlipidemia, unspecified; G30.9 Alzheimer's disease, unspecified; K21.9 Gastro-esophageal reflux disease without esophagitis; K57.90 Diverticulosis of intestine, part unspecified, without perforation or abscess without bleeding; Z87.891 Personal history of nicotine dependence; J84.9 Interstitial pulmonary disease, unspecified; Z20.822 Contact with and (suspected) exposure to COVID-19; Z88.0 Allergy status to penicillin
CPT/HCPCS: 0241U-QW; 36415; 70450-TC; 71045-TC-FY; 80048; 80053; 80061; 81003; 82553; 82803; 83036; 83605; 83735; 84443; 84484; 85025; 85610; 85730; 86850; 86900; 86901; 87040; 87086; 93005; 93010; 93225; 93226; 93306-TC; 97116-GP; 97161-GP; 99285-25; G0378

== ENCOUNTER 2022-09-06 12:39 | Inpatient (IN) | payer OTHER ==
[2022-09-06] MEDS ORDERED: LACTATED RINGERS SOLUTION 1000 ML INFUS.BAG IV ONE ×2 (14:57→18:52)
[2022-09-06 16:21] LABS: BASO % 0.3 % (0-2.0); EOS % 0.3 % (0-4.5); HEMOGLOBIN 12.4 GM/dL (11.7-16.9); LYMPH % 7.1 % (8-40); MCHC 34.3 g/dl (32.0-35.9); MEAN CELL VOLUME 93.3 fl (80-96); MEAN PLT VOLUME 8.7 fl (7.5-11.1); MONO % 6.9 % (3.8-10.2); NEUT % 85.4 % (42.8-82.8); PLATELET COUNT 157 10^3/uL (134-434); RBC 3.86 M/mm3 (4.00-5.60); RDW 15.3 % (11.9-15.9); WHITE BLOOD COUNT 9.7 K/mm3 (4.0-10.0)
[2022-09-06 16:26] LABS: INR 1.46 (0.83-1.09); PROTHROMBIN TIME (PATIENT) 16.8 SEC (9.7-13.0)
[2022-09-06 16:28] LABS: ACTIVATED PTT 31.1 SECONDS (25.2-36.5)
[2022-09-06 16:35] LABS: CALCIUM 8.7 mg/dL (8.5-10.1)
[2022-09-06 16:36] LABS: ALBUMIN 3.3 g/dl (3.4-5.0); BLOOD UREA NITROGEN 17.6 mg/dL (7-18)
[2022-09-06 16:39] LABS: CREATININE 1.2 mg/dL (0.55-1.3)
[2022-09-06 16:40] LABS: BILIRUBIN,TOTAL 0.8 mg/dL (0.2-1); TOT PROT 7.4 g/dl (6.4-8.2)
[2022-09-06 16:52] LABS: LACTIC ACID 2.2 mmol/L (0.4-2.0)
[2022-09-06 17:23] LABS: CALCIUM 8.5 mg/dL (8.5-10.1)
[2022-09-06 17:27] LABS: CREATININE 1.2 mg/dL (0.55-1.3)
[2022-09-06] MEDS ORDERED: AZITHROMYCIN IVPB 500 MG in DEXTROSE 5%-WATER - 250 ML IVPB ONE (19:24)
[2022-09-06] MEDS ORDERED: CEFTRIAXONE 1,000 MG in DEXTROSE 5%-WATER - 50 ML IVPB ONE (19:24)
[2022-09-06] MEDS ORDERED: CEFTRIAXONE 1 GM/50 ML BAG ONE (19:38)
[2022-09-06] MEDS ORDERED: AZITHROMYCIN IVPB 500 MG/250 ML BAG IVPB ONE (19:38)
[2022-09-06] MEDS ORDERED: ACETAMINOPHEN 325 MG TABLET (FP) PO PRN (20:46)
[2022-09-06] MEDS ORDERED: SODIUM CHLORIDE 1,000 ML IV SCH (21:00)
[2022-09-07 06:24] VITALS: BMI 22.7
[2022-09-07] MEDS ORDERED: DONEPEZIL HCL 10 MG TABLET (FP) PO SCH ×2 (10:00→22:00)
[2022-09-07 10:22] LABS: BASO % 0.8 % (0-2.0); EOS % 5.1 % (0-4.5); HEMATOCRIT 34.2 % (35.4-49); HEMOGLOBIN 11.7 GM/dL (11.7-16.9); LYMPH % 17.5 % (8-40); MCH 32.1 pg (25.7-33.7); MCHC 34.3 g/dl (32.0-35.9); MEAN CELL VOLUME 93.8 fl (80-96); MEAN PLT VOLUME 8.8 fl (7.5-11.1); MONO % 8.2 % (3.8-10.2); NEUT % 68.4 % (42.8-82.8); PLATELET COUNT 138 10^3/uL (134-434); RBC 3.64 M/mm3 (4.00-5.60); WHITE BLOOD COUNT 6.3 K/mm3 (4.0-10.0)
[2022-09-07] MEDS: ESCITALOPRAM OXALATE 10 MG TABLET PO SCH (10:38)
[2022-09-07] MEDS: PANTOPRAZOLE 40 MG TABLET PO SCH (10:38)
[2022-09-07] MEDS: LORATADINE 10 MG TABLET PO SCH (10:38)
[2022-09-07] MEDS: APIXABAN 5 MG TABLET PO SCH ×2 (10:38→22:20)
[2022-09-07] MEDS: QUEtiapine FUMARATE 25 MG TABLET PO SCH ×2 (10:50→22:20)
[2022-09-07] MEDS: MEGESTROL ACETATE 400 MG/10 ML UNIT DOSE CUP PO SCH (11:11)
[2022-09-07] MEDS: buPROPion HCL 75 MG TABLET PO SCH (11:11)
[2022-09-07 11:15] LABS: BLOOD UREA NITROGEN 13.4 mg/dL (7-18); CALCIUM 8.4 mg/dL (8.5-10.1); MAGNESIUM 1.9 mg/dL (1.8-2.4)
[2022-09-07 11:18] LABS: CREATININE 0.9 mg/dL (0.55-1.3)
[2022-09-07 12:16] LABS: PH,URINE 5.5 (5.0-8.0); URINE APPEARANCE CLEAR; URINE BILIRUBIN NEGATIVE (NEGATIVE); URINE COLOR YELLOW; URINE GLUCOSE (UA) NEGATIVE (NEGATIVE); URINE KETONE NEGATIVE (NEGATIVE); URINE LEUK ESTERASE NEGATIVE (NEGATIVE); URINE NITRITE NEGATIVE (NEGATIVE); URINE PROTEIN NEGATIVE (NEGATIVE); URINE UROBILINOGEN 0.2 mg/dL (0.2-1.0)
[2022-09-07] MEDS: D5-1/2NS+10 MEQ KCL - 10 MEQ/1,000 ML INFUS.BAG IV SCH (17:57)
[2022-09-07] MEDS: MIRTAZAPINE 15 MG TABLET (FP) PO SCH (22:20)
[2022-09-07] MEDS: ATORVASTATIN CA 40 MG TABLET (FP) PO SCH (22:20)
[2022-09-08] MEDS: LORATADINE 10 MG TABLET PO SCH (10:37)
[2022-09-08] MEDS: ESCITALOPRAM OXALATE 10 MG TABLET PO SCH (10:38)
[2022-09-08] MEDS: PANTOPRAZOLE 40 MG TABLET PO SCH (10:38)
[2022-09-08] MEDS: QUEtiapine FUMARATE 25 MG TABLET PO SCH ×2 (10:38→22:26)
[2022-09-08] MEDS: MEGESTROL ACETATE 400 MG/10 ML UNIT DOSE CUP PO SCH (10:48)
[2022-09-08] MEDS: buPROPion HCL 75 MG TABLET PO SCH (10:48)
[2022-09-08] MEDS: APIXABAN 5 MG TABLET PO SCH ×2 (10:49→22:26)
[2022-09-08] MEDS: D5-1/2NS+10 MEQ KCL - 10 MEQ/1,000 ML INFUS.BAG IV SCH (17:29)
[2022-09-08] MEDS ORDERED: CARBIDOPA/LEVODOPA 10/100 TABLET (FP) PO SCH (22:00)
[2022-09-08] MEDS: MEMANTINE HCL 5 MG TABLET (UD) PO SCH (22:26)
[2022-09-08] MEDS: MIRTAZAPINE 15 MG TABLET (FP) PO SCH (22:26)
[2022-09-08] MEDS: ATORVASTATIN CA 40 MG TABLET (FP) PO SCH (22:27)
[2022-09-09] MEDS: APIXABAN 5 MG TABLET PO SCH ×2 (09:31→22:09)
[2022-09-09] MEDS: PANTOPRAZOLE 40 MG TABLET PO SCH (09:31)
[2022-09-09] MEDS: MEMANTINE HCL 5 MG TABLET (UD) PO SCH ×2 (09:31→22:09)
[2022-09-09] MEDS: DONEPEZIL HCL 5 MG TABLET (FP) PO SCH (09:31)
[2022-09-09] MEDS ORDERED: MEMANTINE HCL 28 MG PO SCH (10:00)
[2022-09-09] MEDS: MEGESTROL ACETATE 400 MG/10 ML UNIT DOSE CUP PO SCH (11:25)
[2022-09-09] MEDS: QUEtiapine FUMARATE 25 MG TABLET PO SCH (22:08)
[2022-09-09] MEDS: ATORVASTATIN CA 40 MG TABLET (FP) PO SCH (22:08)
[2022-09-09] MEDS: MIRTAZAPINE 15 MG TABLET (FP) PO SCH (22:09)
[2022-09-10] MEDS: PANTOPRAZOLE 40 MG TABLET PO SCH (09:14)
[2022-09-10] MEDS: APIXABAN 5 MG TABLET PO SCH ×2 (09:14→22:50)
[2022-09-10] MEDS: DONEPEZIL HCL 5 MG TABLET (FP) PO SCH (09:14)
[2022-09-10] MEDS: MEGESTROL ACETATE 400 MG/10 ML UNIT DOSE CUP PO SCH (09:15)
[2022-09-10] MEDS: MEMANTINE HCL 5 MG TABLET (UD) PO SCH ×2 (09:15→22:50)
[2022-09-10] MEDS: MIRTAZAPINE 15 MG TABLET (FP) PO SCH (22:49)
[2022-09-10] MEDS: ATORVASTATIN CA 40 MG TABLET (FP) PO SCH (22:50)
[2022-09-10] MEDS: QUEtiapine FUMARATE 25 MG TABLET PO SCH (22:50)
[2022-09-11] MEDS: MEMANTINE HCL 5 MG TABLET (UD) PO SCH ×2 (09:46→22:35)
[2022-09-11] MEDS: DONEPEZIL HCL 5 MG TABLET (FP) PO SCH (09:47)
[2022-09-11] MEDS: PANTOPRAZOLE 40 MG TABLET PO SCH (09:47)
[2022-09-11] MEDS: MEGESTROL ACETATE 400 MG/10 ML UNIT DOSE CUP PO SCH (09:47)
[2022-09-11] MEDS: APIXABAN 5 MG TABLET PO SCH ×2 (09:47→22:35)
[2022-09-11 10:40] LABS: HEMATOCRIT 35.8 % (35.4-49); HEMOGLOBIN 12.5 GM/dL (11.7-16.9); MCH 32.2 pg (25.7-33.7); MEAN CELL VOLUME 92.2 fl (80-96); MEAN PLT VOLUME 8.8 fl (7.5-11.1); PLATELET COUNT 171 10^3/uL (134-434); RBC 3.88 M/mm3 (4.00-5.60); RDW 15.1 % (11.9-15.9); WHITE BLOOD COUNT 5.4 K/mm3 (4.0-10.0)
[2022-09-11 11:24] LABS: CALCIUM 8.5 mg/dL (8.5-10.1)
[2022-09-11 11:25] LABS: ALBUMIN 2.9 g/dl (3.4-5.0); BLOOD UREA NITROGEN 14.4 mg/dL (7-18)
[2022-09-11 11:27] LABS: CREATININE 0.9 mg/dL (0.55-1.3)
[2022-09-11 11:28] LABS: BILIRUBIN,TOTAL 0.6 mg/dL (0.2-1); TOT PROT 6.6 g/dl (6.4-8.2)
[2022-09-11] MEDS: ATORVASTATIN CA 40 MG TABLET (FP) PO SCH (22:35)
[2022-09-11] MEDS: QUEtiapine FUMARATE 25 MG TABLET PO SCH (22:35)
[2022-09-11] MEDS: MIRTAZAPINE 15 MG TABLET (FP) PO SCH (22:35)
[2022-09-12] MEDS: PANTOPRAZOLE 40 MG TABLET PO SCH (11:00)
[2022-09-12] MEDS: DONEPEZIL HCL 5 MG TABLET (FP) PO SCH (11:01)
[2022-09-12] MEDS: APIXABAN 5 MG TABLET PO SCH ×2 (11:01→21:29)
[2022-09-12] MEDS: MEGESTROL ACETATE 400 MG/10 ML UNIT DOSE CUP PO SCH (11:02)
[2022-09-12] MEDS: MEMANTINE HCL 5 MG TABLET (UD) PO SCH ×2 (11:03→21:29)
[2022-09-12] MEDS: MIRTAZAPINE 15 MG TABLET (FP) PO SCH (21:29)
[2022-09-12] MEDS: ATORVASTATIN CA 40 MG TABLET (FP) PO SCH (21:29)
[2022-09-12] MEDS: QUEtiapine FUMARATE 25 MG TABLET PO SCH (21:29)
[2022-09-13] MEDS: DONEPEZIL HCL 5 MG TABLET (FP) PO SCH (10:22)
[2022-09-13] MEDS: PANTOPRAZOLE 40 MG TABLET PO SCH (10:22)
[2022-09-13] MEDS: APIXABAN 5 MG TABLET PO SCH (10:23)
[2022-09-13] MEDS: MEMANTINE HCL 5 MG TABLET (UD) PO SCH (10:23)
[2022-09-13] MEDS: MEGESTROL ACETATE 400 MG/10 ML UNIT DOSE CUP PO SCH (10:23)
[2022-09-13 15:36] VITALS: BP 107/70; PULSE 96; RESP 18; TEMP 98.7
== END 2022-09-13 21:45 | disposition home health service (06) | DRG 57 ==
LOC: JER 12:39 → JERBED 16:56 → J8W 09-07 03:38
PROVIDERS: ADMIT Internal Medicine; ATTEND Family Medicine
DX: G30.9 Alzheimer's disease, unspecified (principal); E87.20 Acidosis, unspecified; J84.9 Interstitial pulmonary disease, unspecified; I10 Essential (primary) hypertension; E78.5 Hyperlipidemia, unspecified; G20 Parkinson's disease; R41.82 Altered mental status, unspecified; I25.10 Atherosclerotic heart disease of native coronary artery without angina pectoris; K21.9 Gastro-esophageal reflux disease without esophagitis; R59.0 Localized enlarged lymph nodes; F02.80 Dementia in other diseases classified elsewhere, unspecified severity, without behavioral disturbance, psychotic disturbance, mood disturbance, and anxiety; E86.0 Dehydration; Z86.73 Personal history of transient ischemic attack (TIA), and cerebral infarction without residual deficits
CPT/HCPCS: 0241U-QW; 36415; 70450-TC; 71045-TC-FY; 74177-TC; 74230-TC-FY; 80048; 80053; 81003; 82607; 83605; 83690; 83735; 84443; 84484; 85025; 85027; 85610; 85730; 86780; 87086; 92611-GN; 93005; 93010; 97116-GP; 97161-GP; 99285-25; C9803-CS; U0003; U0005

== ENCOUNTER 2024-03-23 12:16 | Inpatient (IN) | payer OTHER ==
[2024-03-23] MEDS ORDERED: ACETAMINOPHEN INJECTION 100 ML IVPB ONE (12:39)
[2024-03-23] MEDS: SODIUM CHLORIDE 0.9% 1000 ML INFUS.BAG IV STA (12:49)
[2024-03-23 13:07] LABS: VENOUS BASE EXCESS -15.4 mmol/L (-2-2); VENOUS O2 SATURATION 55.7 % (70-80); VENOUS PCO2 27.3 mmHg (38-52); VENOUS PH 7.22 (7.310-7.410)
[2024-03-23 13:20] LABS: BASO % 0.2 % (0-2.0); HEMATOCRIT 21.4 % (35.4-49); LYMPH % 5.2 % (8-40); MCH 23.8 pg (25.7-33.7); MCHC 29.9 g/dl (32.0-35.9); MEAN CELL VOLUME 79.8 fl (80-96); MEAN PLT VOLUME 9.4 fl (7.5-11.1); MONO % 9.5 % (3.8-10.2); NEUT % 85.1 % (42.8-82.8); PLATELET COUNT 233 10^3/uL (134-434); RBC 2.68 M/mm3 (4.00-5.60); RDW 20.7 % (11.9-15.9); WHITE BLOOD COUNT 12.6 K/mm3 (4.0-10.0)
[2024-03-23 13:25] LABS: HEMOGLOBIN 6.4 GM/dL (11.7-16.9)
[2024-03-23 13:32] LABS: ACTIVATED PTT 30.3 SECONDS (25.2-36.5)
[2024-03-23] MEDS ORDERED: AZTREONAM 1 GM VIAL (RESTRICTED TO ID) ONE (13:34)
[2024-03-23 13:39] LABS: POTASSIUM 5.5 mmol/L (3.5-5.1)
[2024-03-23 13:43] LABS: INR 4.91 (0.83-1.09)
[2024-03-23 13:44] LABS: CALCIUM 7.6 mg/dL (8.5-10.1)
[2024-03-23 13:45] LABS: ALBUMIN 2.4 g/dl (3.4-5.0); BLOOD UREA NITROGEN 47.6 mg/dL (7-18)
[2024-03-23 13:47] LABS: CREATININE 1.9 mg/dL (0.55-1.3)
[2024-03-23 13:50] LABS: BILIRUBIN,TOTAL 1.4 mg/dL (0.2-1); LACTIC ACID 12.3 mmol/L (0.4-2.0); TOT PROT 5.7 g/dl (6.4-8.2)
[2024-03-23] MEDS ORDERED: PHYTONADIONE 10 MG/1 ML AMP ONE (14:04)
[2024-03-23] MEDS: VANCOMYCIN HCL 1,500 MG in DEXTROSE 5%-WATER - 500 ML IVPB ONE (14:19)
[2024-03-23] MEDS: PHYTONADIONE 10 MG/1 ML AMP IVPB ONE (14:19)
[2024-03-23] MEDS: AZTREONAM 1 GM in DEXTROSE 5%-WATER - 50 ML IVPB ONE ×2 (14:19→17:24)
[2024-03-23 14:30] LABS: ANISOCYTOSIS 3+; MACROCYTOSIS 0
[2024-03-23 14:57] LABS: LACTIC ACID > 15.0 mmol/L (0.4-2.0)
[2024-03-23 16:02] VITALS: RESP 27
[2024-03-23] MEDS: NOREPINEPHRINE BITARTRATE 4,000 MCG in DEXTROSE 5%-WATER - 496 ML IV SCH ×2 (16:14→18:00)
[2024-03-23] MEDS ORDERED: NOREPINEPHRINE 0.9 % NACL 8 MG/250 ML BAG IVPB SCH (16:15)
[2024-03-23] MEDS: VANCOMYCIN PREMIX 1.5 GM 1,500 MG/300 ML BAG IVPB ONE (17:24)
[2024-03-23] MEDS: methylPREDNISolone NA SUCC 40 MG/1 ML VIAL IVPUSH SCH (17:24)
[2024-03-23 17:33] VITALS: TEMP 97.8; BMI 20.5
[2024-03-23 17:43] LABS: ARTERIAL BLD GAS O2 SATURATION 97.4 % (95-98); ARTERIAL BLOOD GAS BASE EXCESS -29.8 mmol/L (-2-2)
[2024-03-23 17:44] LABS: ALLENS TEST POSITIVE
[2024-03-23 17:47] LABS: ARTERIAL BLOOD GAS pH 6.791 (7.350-7.450)
[2024-03-23] MEDS ORDERED: NOREPINEPHRINE BITARTRATE 4 MG/4 ML ML IV ONE (17:59)
[2024-03-23] MEDS ORDERED: SODIUM BICARBONATE 8.4% 50 MEQ/50 ML DISP.SYRIN ONE (18:05)
[2024-03-23] MEDS: SODIUM BICARBONATE 8.4% 50 MEQ/50 ML VIAL IVPUSH SCH (18:12)
[2024-03-23 18:34] VITALS: BP 41/30; PULSE 73
[2024-03-23] MEDS: SODIUM BICARBONATE 8.4% - 150 MEQ in DEXTROSE 5%-WATER - 950 ML IVPB SCH (18:37)
[2024-03-23] MEDS ORDERED: EPINEPHrine 1:1,000 1,000 MCG in DEXTROSE 5%-WATER - 249 ML IVPB SCH (18:45)
[2024-03-23] MEDS ORDERED: ATROPINE SULFATE 1 MG/10 ML DISP.SYRIN IVPUSH ONE (18:48)
[2024-03-23 19:03] LABS: BILIRUBIN,DIRECT 0.7 mg/dL (0.0-0.2)
[2024-03-23] MEDS ORDERED: MUPIROCIN 2% TOPICAL OINTMENT FOR DECOLONIZATION NS SCH (22:00)
[2024-03-23] MEDS ORDERED: CHLORHEXIDINE GLUCONATE 4% CLEANSER FOR DECOLONIZATION TP SCH (22:00)
[2024-03-23] MEDS ORDERED: PANTOPRAZOLE SODIUM 40 MG VIAL IVPUSH SCH (22:00)
== END 2024-03-23 21:30 | disposition expired | DRG 871 ==
LOC: JER 12:16 → JERBED 14:19 → JICU 16:38
PROVIDERS: ADMIT Internal Medicine; ATTEND Internal Medicine
PROC: 4A133B1 Monitoring of Arterial Pressure, Peripheral, Percutaneous Approach (ICD-10-PCS; principal; 2024-03-23)
PROC: 4A133J1 Monitoring of Arterial Pulse, Peripheral, Percutaneous Approach (ICD-10-PCS; 2024-03-23)
PROC: 30233N1 Transfusion of Nonautologous Red Blood Cells into Peripheral Vein, Percutaneous Approach (ICD-10-PCS; 2024-03-23)
DX: A41.9 Sepsis, unspecified organism (principal); I21.4 Non-ST elevation (NSTEMI) myocardial infarction; J80 Acute respiratory distress syndrome; R65.21 Severe sepsis with septic shock; J18.9 Pneumonia, unspecified organism; K72.00 Acute and subacute hepatic failure without coma; D68.9 Coagulation defect, unspecified; J90 Pleural effusion, not elsewhere classified; E87.20 Acidosis, unspecified; K92.2 Gastrointestinal hemorrhage, unspecified; N17.9 Acute kidney failure, unspecified; I46.9 Cardiac arrest, cause unspecified; D64.9 Anemia, unspecified
CPT/HCPCS: 0241U-QW; 36415; 36430; 36600; 71045-TC-FY; 80053; 82248; 82272; 82550; 82728; 82803; 82977; 83540; 83550; 83605; 84466; 84484; 85025; 85045; 85610; 85730; 86850; 86900; 86901; 86922; 87040; 93005; 93010; 99285-25; P9038; P9058